=== PATIENT | male | born 1940 | race Caucasian/White ===

== ENCOUNTER 2021-04-17 18:05 | Observation (INO) | payer MEDICARE, BC ==
[~2021-04-17] VITALS: Ht 187 cm; Wt 106.5 kg
[2021-04-17] MEDS ORDERED: morphine INJ 10 MG/ML 1ML (SYR OR VIAL) IVP PRN (21:15)
[2021-04-17] MEDS ORDERED: PANTOPRAZOLE 40 MG (PROTONIX) VIAL IV ONE (21:15)
[2021-04-17] MEDS ORDERED: ONDANSETRON 4 MG/2 ML (SDV) Z0FRAN IVP PRN (21:15)
[2021-04-17] MEDS: LACTATED RINGERS 1,000 ML IV SCH (22:36)
[2021-04-18] VITALS: BP 111/56
[2021-04-18 04:19] VITALS: BP 111/56
[2021-04-18 05:55] LABS: MEAN CORPUSCULAR VOLUME 100 fL (80-99)
[2021-04-18 05:57] LABS: BASOPHILS % (AUTO) 0 % (0-10); EOSINOPHILS # (AUTO) 0.1 10^3/uL (0.0-0.3); EOSINOPHILS % (AUTO) 1 % (0-10); HEMATOCRIT 29 % (40-54); HEMOGLOBIN 9.5 g/dL (13.3-17.7); LYMPHOCYTES # (AUTO) 0.7 10^3/uL (1.0-4.0); LYMPHOCYTES % (AUTO) 7 % (12-44); MEAN CORPUSCULAR HEMOGLOBIN 33 pg (25-34); MEAN CORPUSCULAR HGB CONC 33 g/dL (32-36); MEAN PLATELET VOLUME 12.2 fL (9.0-12.2); MONOCYTES % (AUTO) 12 % (0-12); NEUTROPHILS # (AUTO) 7.1 10^3/uL (1.8-7.8); NEUTROPHILS % (AUTO) 80 % (42-75); PLATELET COUNT 85 10^3/uL (130-400); WHITE BLOOD COUNT 8.9 10^3/uL (4.3-11.0)
[2021-04-18 06:05] LABS: ALBUMIN 3.1 GM/DL (3.2-4.5); POTASSIUM 5.1 MMOL/L (3.6-5.0)
[2021-04-18 06:06] LABS: CALCIUM 8.5 MG/DL (8.5-10.1)
[2021-04-18 06:07] LABS: TOTAL PROTEIN 5.8 GM/DL (6.4-8.2)
[2021-04-18 06:09] LABS: BILIRUBIN,TOTAL 2.5 MG/DL (0.1-1.0)
[2021-04-18 06:11] LABS: CREATININE SERUM 1.22 MG/DL (0.60-1.30)
[2021-04-18] MEDS: LACTATED RINGERS 1,000 ML IV SCH ×2 (06:37→13:38)
[2021-04-18 07:08] LABS: BAND NEUTROPHILS 0 %; BASOPHILS % (MANUAL) 0 %; EOSINOPHILS % (MANUAL) 0 %; LYMPHOCYTES % (MANUAL) 5 %; MONOCYTES % (MANUAL) 3 %; NEUTROPHILS % (MANUAL) 92 %
[2021-04-18 07:09] LABS: RBC MORPH NORMAL
[2021-04-18 07:14] VITALS: BP 101/48
[2021-04-18] MEDS ORDERED: PANTOPRAZOLE 40 MG (PROTONIX) VIAL IV SCH (09:00)
[2021-04-18] MEDS ORDERED: LISI40TA9 PO (10:18)
[2021-04-18] MEDS ORDERED: GLIP10TA24 PO (10:18)
[2021-04-18] MEDS ORDERED: CARV25TA PO (10:18)
[2021-04-18] MEDS ORDERED: METF-397 PO (10:18)
[2021-04-18] MEDS ORDERED: HYDR25TA4 PO (10:18)
[2021-04-18] MEDS ORDERED: ATOR20TA66 PO (10:18)
[2021-04-18] MEDS ORDERED: OMEG-160 PO (10:25)
[2021-04-18] MEDS ORDERED: FERR-84 PO (10:25)
[2021-04-18] MEDS ORDERED: VIT1TABL26 PO (10:25)
[2021-04-18] MEDS ORDERED: ASPI-1238 PO (10:25)
[2021-04-18] MEDS ORDERED: CHOL10007 PO (10:25)
[2021-04-18 11:44] VITALS: BP 113/52
--- NOTE | 2021-04-18 12:43 | Consultation - Surgery ---
History of Present Illness History of Present Illness Patient Consulted On(benitez/time) 04/18/21 12:35 Time Seen by Provider: 09:47 History of Present Illness Surgery asked to consult regarding abdominal pain and anemia. HPI: pt was transferred from [place], [place] because of no beds at that hosp [facility]. Transferring physician was concerned about anemia, ??rectal mass, elevated lipase and abdominal pain. Pt presented to the ER with 10/10 epigastric pain that had come on all of a sudden and was not letting up. He stated he has never had pain like this before. However, it went down to a 2 with some pain meds before he got transferred and this am it is "zero". He described a sharp stabbing pain that my have gone to his back "a little". ER Physician was also concerned about a report of blood on the sheets and thought there might be a rectal mass. Pt related that he had a scope 4-5 years ago where they found polyps and thinks he may be due for repeat. CT done last night did not show any free air, did see a gallstone with no signs of acute inflammation around it and no other signs of inflammation in the abdomen either. Allergies and Home Medications Allergies Coded Allergies: No Known Drug Allergies (Unverified , 04/17/21) Patient Home Medication List Home Medication List Reviewed: Yes Aspirin (Aspirin EC) 81 Mg Tablet.dr, 81 MG PO HS, (Reported) Entered as Reported by: HAMILTON SPENCE on 04/18/21 1025 Last Action: Reviewed Atorvastatin Calcium (Atorvastatin Calcium) 20 Mg Tablet, 20 MG PO HS, (Reported) Entered as Reported by: HAMILTON SPENCE on 04/18/21 1018 Last Action: Reviewed Carvedilol (Carvedilol) 25 Mg Tablet, 25 MG PO BID, (Reported) Entered as Reported by: HAMILTON SPENCE on 04/18/21 1018 Last Action: Reviewed Cholecalciferol (Vitamin D3) (Vitamin D3) 25 Mcg Capsule, 25 MCG PO DAILY, (Reported) Entered as Reported by: HAMILTON SPENCE on 04/18/21 1025 Last Action: Reviewed Ferrous Sulfate (Iron) 325 Mg Tablet, 325 MG PO HS, (Reported) Entered as Reported by: HAMILTON SPENCE on 04/18/21 1025 Last Action: Reviewed Glipizide (Glipizide ER) 10 Mg Tab.er.24, 10 MG PO DAILY, (Reported) Entered as Reported by: HAMILTON SPENCE on 04/18/211017 Last Action: Reviewed Hydrochlorothiazide (Hydrochlorothiazide) 25 Mg Tablet, 25 MG PO DAILY, (Reported) Entered as Reported by: HAMILTON SPENCE on 04/18/211017 Last Action: Reviewed Lisinopril (Lisinopril) 40 Mg Tablet, 40 MG PO DAILY, (Reported) Entered as Reported by: HAMILTON SPENCE on 04/18/211017 Last Action: Reviewed Metformin HCl (Metformin HCl) 500 Mg Tablet, 500 MG PO BID WITH MEALS, (R eported) Entered as Reported by: HAMILTON SPENCE on 04/18/211017 Last Action: Reviewed [place]-3/Dha/Epa/Fish Oil (Fish Oil 1,000 mg Softgel) 1 Each Capsule, 1 EACH PO BID, (Reported) Entered as Reported by: HAMILTON SPENCE on 04/18/21 102 Last Action: Reviewed Vit A,C & E/Lutein/Minerals (Ocuvite with Lutein Tablet) 1 Each Tablet, 1 EACH PO DAILY, (Reported) Entered as Reported by: HAMILTON SPENCE on 04/18/21 102 Last Action: Reviewed Past Tzzdmhd-[id number]-[id number] Hx Patient Social History Smoking Status: Never a Smoker Alcohol Use?: No Have you traveled recently?: No Surgeries History of Surgeries: Yes (Colonoscopy, skin cancer removal) Respiratory History of Respiratory Disorde: No Cardiovascular History of Cardiac Disorders: Yes Cardiac Disorders: High Cholesterol, Hypertension, Irregular Heartbeat (Pacemaker implantation) Neurological History of Neurological Disord: No Genitourinary History of Genitourinary Disor: No Gastrointestinal History of Gastrointestinal Di: Yes Gastrointestinal Disorders: Gastroesophageal Reflux, Hemorrhoids Musculoskeletal History of Musculoskeletal Dis: Yes Musculoskeletal Disorders: Arthritis Endocrine History of Endocrine Disorders: Yes Endocrine Disorders: Diabetes, Non-Insulin dep HEENT History of HEENT Disorders: Yes HEENT Disorders: Cataract Loss of Vision: Bilateral Hearing Impairment: Hard of Hearing Cancer History of Cancer: Yes Cancer: Skin Psychosocial History of Psychiatric Problem: No Integumentary History of Skin or Integumenta: No Family Medical History Significant Family History: Diabetes (Mother), Stroke (Father), Other Conditions/Hx (Mother with Alzheimer's) Review of Systems-General Constitutional: No chills EENTM: No blurred vision, No double vision, No mouth swelling, No epistaxis Respiratory: No cough, No dyspnea on exertion Cardiovascular: No chest pain, No edema; Hx of Intervention (pacemaker) Gastrointestinal: No abdominal pain Genitourinary: No dysuria, No frequency, No hematuria; nocturia Musculoskeletal: joint pain, joint swelling Skin: No change in color, No change in hair/nails Psychiatric/Neurological: Denies Anxiety, Denies Depressed, Denies Seizure, Denies Tremors Physical Exam-General Problems Physical Exam Vital Signs Vital Signs - First Documented 04/17/21 04/18/21 21:11 00:00 Temp 37.0 Pulse 78 Resp 20 B/P (MAP) 111/56 (74) Pulse Ox 93 O2 Delivery Room Air Capillary Refill : General Appearance: WD/WN, no apparent distress Eyes: Bilateral Eye PERRL, Bilateral Eye EOMI HEENT: pharynx normal, other (poor oral dentition) Neck: non-tender, supple Respiratory: chest non-tender, lungs clear, normal breath sounds, no respirator y distress, no accessory muscle use Cardiovascular: regular rate, rhythm, no murmur Gastrointestinal: non tender, soft, no organomegaly, no pulsatile mass Rectal: normal rectal tone, hemorrhoids (external and internal, ?? 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, alert, normal mood/affect, oriented x 3 Skin: normal color, warm/dry Lymphatic: no adenopathy (neck, axilla or groin) Data Review Labs Laboratory Tests 04/18/21 05:26: White Blood Count 8.9, Red Blood Count 2.89L, Hemoglobin 9.5L, Hematocrit 29L, Mean Corpuscular Volume 100H, Mean Corpuscular Hemoglobin 33, Mean Corpuscular Hemoglobin Concent 33, Red Cell Distribution Width 14.3, Platelet Count 85L, Mean Platelet Volume 12.2, Immature Granulocyte % (Auto) 0, Neutrophils (%) (Auto) 80H, Lymphocytes (%) (Auto) 7L, Monocytes (%) (Auto) 12, Eosinophils (%) (Auto) 1, Basophils (%) (Auto) 0, Neutrophils # (Auto) 7.1, Lymphocytes # (Auto) 0.7L, Monocytes # (Auto) 1.0, Eosinophils # (Auto) 0.1, Basophils # (Auto) 0.0, Immature Granulocyte # (Auto) 0.0, Neutrophils % (Manual) 92, Lymphocytes % (Manual) 5, Monocytes % (Manual) 3, Eosinophils % (Manual) 0, Basophils % (Manual) 0, Band Neutrophils 0, Percent Immature Platelet Fraction 5.4, Blood Morphology Comment NORMAL 04/18/21 05:28: Sodium Level 138, Potassium Level 5.1H, Chloride Level 107, Carbon Dioxide Level 21, Anion Gap 10, Blood Urea Nitrogen 37H, Creatinine 1.22, Estimat Glomerular Filtration Rate 60, BUN/Creatinine Ratio 30, Glucose Level 139H, Calcium Level 8.5, Corrected Calcium 9.2, Total Bilirubin 2.5H, Aspartate Amino Transf (AST/SGOT) 31, Alanine Aminotransferase (ALT/SGPT) 29, Alkaline Phosphatase 78, Total Protein 5.8L, Albumin 3.1L, Lipase 32 Assessment/Plan Assessment/Plan Assessment/Plan Abdominal pain - resolved Rectal bleed Anemia Cholelithiasis - probably incidental Pt has no abdominal pain at this time. He is slightly more anemic than he was last night; 11 down to 9.5. I reviewed the CT images myself and then went over them with Radiologist. Pt probably needs a work-up Colonoscopy and EGD, but this should be done as an outpt. No reason to keep pt here, nothing surgical. SYED POPE DO Apr 18, 2021 12:43
--- NOTE | 2021-04-18 13:18 | Discharge Summary ---
MAURO POOLE A MED STUDENT 04/18/21 1318: Diagnosis/Chief Complaint Date of Admission Apr 17, 2021 at 20:45 Date of Discharge Discharge Date: Apr 18, 2021 Discharge Time: 08:50 Admission Diagnosis Rectal mass Primary Care No,Local Physician Discharge Diagnosis Rectal mass (1) Rectal mass Status: Acute Assessment & Plan: F/u with PCP for outpatient colonoscopy (2) Abdominal pain Status: Acute Assessment & Plan: Protonix on d/c as this helped resolve pain during hospital course (3) Pulmonary nodule Status: Chronic Assessment & Plan: CT from [place] showed change from 6mm to 7mm. F/u with PCP in regards to this (4) Pancreatic mass Status: Chronic Assessment & Plan: Unchanged pancreatic head water mass. F/u with PCP (5) Cholelithiasis Status: Acute Assessment & Plan: Incidental finding on CT, pt remained asymptomatic during hospital course If sxs persist, further work up may be needed. Discharge Summary Discharge Physical Exam Allergies: Coded Allergies: No Known Drug Allergies (Unverified , 04/17/21) Vitals & I&Os Vital Signs Date Time Temp Pulse Resp B/P (MAP) Pulse Ox O2 Delivery O2 Flow Rate FiO2 04/18/21 11:44 36.7 79 20 113/52 (72) 92 Room Air General Appearance: No Apparent Distress, WD/WN HEENT: PERRL/EOMI Respiratory: Chest Non Tender, Normal Breath Sounds, No Accessory Muscle Use, No Respiratory Distress Cardiovascular: Regular Rate, Rhythm, No Murmur Gastrointestinal: Normal Bowel Sounds, Non Tender, Soft Extremity: Normal Capillary Refill, Pedal Edema (mild LE edema bilaterally) Skin: Normal Color, Warm/Dry Neurologic/Psychiatric: Alert, Oriented x3, Normal Mood/Affect Hospital Course This is an 80 yo male who presented to [facility] ED for abdominal pain on 04/17. Pt has hx of HTN, T2DM, MS with pacemaker implantation. Pt reports he had 10/10 abdominal pain with chest tightness yesterday, which prompted him to call 911. Pt denied fever, chills, N/V/D/C, loss of appetite, blood in stools or dark tarry stool, or urinary frequency/burning prior to abdominal pain. Pt states his last colonoscopy was 4 years ago where he had polyps removed. Pt denies previous EGD. After being given Protonix, pt's abdominal pain decreased to 1/10. CT from [facility] showed a pulmonary nodule, portal HTN changes, cholelithiasis, pancreatic head water mass, R. adrenal mass, duodenal diverticulum and umbilical hernia with recommendation for f/u in 6 mo in regards to these incidental findings. Labs (last 24 hrs) Laboratory Tests 04/18/21 05:26: White Blood Count 8.9, Red Blood Count 2.89L, Hemoglobin 9.5L, Hematocrit 29L, Mean Corpuscular Volume 100H, Mean Corpuscular Hemoglobin 33, Mean Corpuscular Hemoglobin Concent 33, Red Cell Distribution Width 14.3, Platelet Count 85L, Mean Platelet Volume 12.2, Immature Granulocyte % (Auto) 0, Neutrophils (%) (Auto) 80H, Lymphocytes (%) (Auto) 7L, Monocytes (%) (Auto) 12, Eosinophils (%) (Auto) 1, Basophils (%) (Auto) 0, Neutrophils # (Auto) 7.1, Lymphocytes # (Auto) 0.7L, Monocytes # (Auto) 1.0, Eosinophils # (Auto) 0.1, Basophils # (Auto) 0.0, Immature Granulocyte # (Auto) 0.0, Neutrophils % (Manual) 92, Lymphocytes % (Manual) 5, Monocytes % (Manual) 3, Eosinophils % (Manual) 0, Basophils % (Manual) 0, Band Neutrophils 0, Percent Immature Platelet Fraction 5.4, Blood Morphology Comment NORMAL 04/18/21 05:28: Sodium Level 138, Potassium Level 5.1H, Chloride Level 107, Carbon Dioxide Level 21, Anion Gap 10, Blood Urea Nitrogen 37H, Creatinine 1.22, Estimat Glomerular Filtration Rate 60, BUN/Creatinine Ratio 30, Glucose Level 139H, Calcium Level 8.5, Corrected Calcium 9.2, Total Bilirubin 2.5H, Aspartate Amino Transf (AST/SGOT) 31, Alanine Aminotransferase (ALT/SGPT) 29, Alkaline Phosphatase 78, Total Protein 5.8L, Albumin 3.1L, Lipase 32 Patient resulted labs reviewed. Pending Labs Laboratory Tests 04/18/21 05:26: White Blood Count 8.9, Red Blood Count 2.89, Hemoglobin 9.5, Hematocrit 29, Mean Corpuscular Volume 100, Mean Corpuscular Hemoglobin 33, Mean Corpuscular Hemoglobin Concent 33, Red Cell Distribution Width 14.3, Platelet Count 85, Mean Platelet Volume 12.2, Immature Granulocyte % (Auto) 0, Neutrophils (%) (Auto) 80, Lymphocytes (%) (Auto) 7, Monocytes (%) (Auto) 12, Eosinophils (%) (Auto) 1, Basophils (%) (Auto) 0, Neutrophils # (Auto) 7.1, Lymphocytes # (Auto) 0.7, Monocytes # (Auto) 1.0, Eosinophils # (Auto) 0.1, Basophils # (Auto) 0.0, Immature Granulocyte # (Auto) 0.0, Neutrophils % (Manual) 92, Lymphocytes % (Manual) 5, Monocytes % (Manual) 3, Eosinophils % (Manual) 0, Basophils % (Manual) 0, Band Neutrophils 0, Percent Immature Platelet Fraction 5.4, Blood Morphology Comment NORMAL 04/18/21 05:28: Sodium Level 138, Potassium Level 5.1, Chloride Level 107, Carbon Dioxide Level 21, Anion Gap 10, Blood Urea Nitrogen 37, Creatinine 1.22, Estimat Glomerular Filtration Rate 60, BUN/Creatinine Ratio 30, Glucose Level 139, Calcium Level 8.5, Corrected Calcium 9.2, Total Bilirubin 2.5, Aspartate Amino Transf (AST/ SGOT) 31, Alanine Aminotransferase (ALT/SGPT) 29, Alkaline Phosphatase 78, Total Protein 5.8, Albumin 3.1, Lipase 32 Discharge Home Medications: Active Scripts Active Reported Ocuvite with Lutein Tablet (Vit A,C & E/Lutein/Minerals) 1 Each Tablet 1 Each PO DAILY Iron (Ferrous Sulfate) 325 Mg Tablet 325 Mg PO HS Vitamin D3 (Cholecalciferol (Vitamin D3)) 25 Mcg Capsule 25 Mcg PO DAILY Fish Oil 1,000 mg Softgel ([place]-3/Dha/Epa/Fish Oil) 1 Each Capsule 1 Each PO BID Aspirin EC (Aspirin) 81 Mg Tablet.dr 81 Mg PO HS Atorvastatin Calcium 20 Mg Tablet 20 Mg PO HS Lisinopril 40 Mg Tablet 40 Mg PO DAILY Metformin HCl 500 Mg Tablet 500 Mg PO BID WITH MEALS Carvedilol 25 Mg Tablet 25 Mg PO BID Hydrochlorothiazide 25 Mg Tablet 25 Mg PO DAILY Glipizide ER (Glipizide) 10 Mg Tab.er.24 10 Mg PO DAILY Instructions to patient/family Please see electronic discharge instructions given to patient. MARTIN JONES MD 04/18/212023: Diagnosis/Chief Complaint Discharge Time: 13:00 Discharge Diagnosis (1) Rectal mass Status: Acute Assessment & Plan: F/u with PCP for outpatient colonoscopy (2) Abdominal pain Status: Acute Assessment & Plan: Protonix on d/c as this helped resolve pain during hospital course (3) Pulmonary nodule Status: Chronic Assessment & Plan: CT from [place] showed change from 6mm to 7mm. F/u with PCP (4) Pancreatic mass Status: Chronic Assessment & Plan: Unchanged pancreatic mass. F/u with PCP (5) Cholelithiasis Status: Acute Assessment & Plan: Incidental finding on CT, pt remained asymptomatic during hospital course (6) Adrenal incidentaloma Status: Acute Discharge Summary Discharge Physical Exam Allergies: Coded Allergies: No Known Drug Allergies (Unverified , 04/17/21) Hospital Course 80 year old male presented with abdominal pain. Resolved with IV PPI. Found to have rectal mass. Surgery consulted, recommends outpatient endoscopy. Multiple other incidental findings including: pancreatic mass, adrenal mass, pulmonary nodule, cholelithiasis. Imaging: Reviewed Imaging Report Discussion & Recommendations Discharge Planning: <30 minutes discharge planning Supervisory-Addendum Brief Verification & Attestation Participated in pt care: history, MDM, physical Personally performed: exam, history, MDM, supervision of care Care discussed with: Medical Student Procedures: n/a Results interpretation: Verified all documentation A medical student performed and documented this service in my presence. I reviewed and verified all information documented by the medical student and made modifications to such information, when appropriate. I personally performed the physical exam and medical decision making. MAURO POOLE MED STUDENT Apr 18, 2021 13:18 MARTIN JONES MD Apr 18, 2021 20:24
[2021-04-18 14:45] VITALS: BP 113/52
== END 2021-04-18 12:18 | disposition home or self-care (01) ==
LOC: UNDOADMOB 20:45 → EDBD 20:45 → 4TH 20:45 → UNDODISOB 04-18 14:46
PROVIDERS: ADMIT Internal Medicine; ATTEND Internal Medicine
DX: K62.5 Hemorrhage of anus and rectum (principal); R10.9 Unspecified abdominal pain; D64.9 Anemia, unspecified; E78.00 Pure hypercholesterolemia, unspecified; K86.89 Other specified diseases of pancreas; K80.20 Calculus of gallbladder without cholecystitis without obstruction; I10 Essential (primary) hypertension; K21.9 Gastro-esophageal reflux disease without esophagitis; M19.90 Unspecified osteoarthritis, unspecified site; E11.9 Type 2 diabetes mellitus without complications; R91.1 Solitary pulmonary nodule; E27.8 Other specified disorders of adrenal gland; Z79.82 Long term (current) use of aspirin; Z79.84 Long term (current) use of oral hypoglycemic drugs; Z79.899 Other long term (current) drug therapy; Z82.3 Family history of stroke; Z83.3 Family history of diabetes mellitus
CPT/HCPCS: 36415; 80053; 83690; 85007; 85027